=== PATIENT | female | born 1975 | race Caucasian/White ===

== ENCOUNTER 2018-11-11 10:59 | Day surgery (SDC) | payer OTHER ==
[~2018-11-11 10:59] MED LIST: Buffered Lidocaine 1% SYRIN* 1 ML/SYRINGE INTRADERM ONE
[2018-11-11] MEDS ORDERED: Midazolam* 1 MG/ML 2 ML VIAL (2 MG) ONE (13:37)
[2018-11-11 14:22] VITALS: BP 119/73
[2018-11-11] MEDS ORDERED: Lidocaine 1%* 5 ML VIAL ONE (15:12)
[2018-11-11] MEDS ORDERED: Lidocaine 2% EPI 1:200000 MPF*10-20 ML VIAL ONE (15:12)
[2018-11-11] MEDS ORDERED: acetaZOLAMIDE TAB* 250 MG ONE (15:12)
[2018-11-11] MEDS ORDERED: Ketorolac 0.5% OPHTH (NF) 0.5 % 5 ML BTL ONE (15:12)
[2018-11-11] MEDS ORDERED: Povidone Iodine 5% OPTH* 30 ML BTL ONE (15:12)
[2018-11-11] MEDS ORDERED: Neomycin/Polymy/Dex OPTH.SUSP* MAXITROL 0.1% 5 ML ONE (15:12)
[2018-11-11] MEDS ORDERED: Cyclopentolate 1% OPTH.SOL* 2 ML BTL ONE (15:12)
[2018-11-11] MEDS ORDERED: Proparacaine 0.5% OPHTH.SOL* 15 ML BTL ONE (15:15)
--- NOTE | 2018-11-11 19:49 | OP ---
DATE OF OPERATION: 11/11/18 [facility] DATE OF : 73 SURGEON: Sergey Mckee M.D. PREOPERATIVE DIAGNOSIS: Cataract right eye. POSTOPERATIVE DIAGNOSIS: Cataract right eye. OPERATIVE PROCEDURE: Extracapsular cataract extraction with intraocular lens implant right eye. DESCRIPTION OF PROCEDURE: The patient was brought to the operating room after being given 1/2% Alcaine with epinephrine drops in the preoperative area. The eye was prepped and draped in the usual sterile fashion. Sterile drape and eyelid speculum were placed. Again, topical 1/2% Alcaine with epinephrine was given. A paracentesis incision was made at the 9 o'clock position with the No.75 blade. Clear cornea incision 2.2 x 2.2-mm was created at the 12 o'clock position starting at the anterior limbus using the 2.2-mm keratome. The anterior chamber was irrigated with 0.4 mL of 1% non-preservative intracameral lidocaine and filled with DisCoVisc. A capsulorrhexis was completed using the cystotome and the Utrata forceps. Hydrodissection was performed with balanced salt solution. The lens nucleus was removed with the Phacoemulsification handpiece without incident. Cortex was removed with the irrigation-aspiration handpiece. The capsular bag was re-inflated using DisCoVisc and an [id number] 23.5 implant was inserted with the shooter and oriented to 92 degree meridian. Horizontal reference candelario made with the patient seated in the preoperative area and measurements were all confirmed with ORA. The irrigation-aspiration handpiece was used to remove all residual DisCoVisc. The eye was refilled with balanced salt solution and the wound checked and found to be watertight. Topical Maxitrol drops were given. [id number]/[facility] #: [id number] MTDD
== END 2018-11-11 14:22 | disposition home or self-care (01) ==
LOC: OREAST 10:59
PROVIDERS: ATTEND Specialist
DX: H25.041 Posterior subcapsular polar age-related cataract, right eye (principal); H52.221 Regular astigmatism, right eye; J45.909 Unspecified asthma, uncomplicated; K21.9 Gastro-esophageal reflux disease without esophagitis
CPT/HCPCS: 81025; A9270-GY; J2250; V2787

== ENCOUNTER 2023-11-11 05:56 | Observation (INO) ==
[~2023-11-11 05:56] MED LIST changes: -Buffered Lidocaine 1% SYRIN* 1 ML/SYRINGE INTRADERM ONE; +Naloxone 0.4 mg VIAL 0.4 mg/ml 1 ml VIAL IV PRN; +fentaNYL 100 mcg/2 ml 50 MCG/ML VIAL IV PRN
[2023-11-11] MEDS ORDERED: ceFAZolin 2 GM in NS PREMIX 2 GM/100 ML BAG IVPB ONE (06:27)
[2023-11-11 06:34] LABS: Rapid COVID-19 Molecular Undetected (Undetected)
[2023-11-11] MEDS: Lactated Ringers 1000 ml BAG 1,000 ML IV SCH (06:40)
[2023-11-11] MEDS ORDERED: Ondansetron 4 mg VIAL 2 MG/ML 2 ml VIAL ONE ×2 (08:07→13:41)
[2023-11-11] MEDS ORDERED: Dexamethasone IV 4 MG/ML VIAL 1 ml VIAL ONE (08:07)
[2023-11-11] MEDS ORDERED: Propofol 10 MG/ML 20 ML BTL ONE (08:07)
[2023-11-11] MEDS ORDERED: Rocuronium 50 mg VIAL 10 mg/ml 5 ml VIAL (50 mg) ONE ×2 (08:07→09:12)
[2023-11-11] MEDS ORDERED: Lidocaine 2% PF 5 ML VIAL ONE (08:07)
[2023-11-11] MEDS ORDERED: Midazolam 2 mg/2 ml VIAL 1 mg/ml 2 ml VIAL (2 mg) ONE (08:08)
[2023-11-11] MEDS ORDERED: fentaNYL 100 mcg/2 ml 50 MCG/ML VIAL ONE ×2 (08:08→11:03)
[2023-11-11] MEDS ORDERED: Lidocaine 1% w EPI 1:200,000 SDV 30 ML VIAL ONE (10:03)
[2023-11-11] MEDS ORDERED: Bupivacaine 0.5% SDV PF 30ML VIAL ONE (10:03)
[2023-11-11] MEDS ORDERED: HYDROmorphone 0.5 MG/0.5 ML SYRINGE ONE (10:51)
[2023-11-11] MEDS ORDERED: Labetalol IV 5 MG/ML 20 ml VIAL ONE (11:35)
[2023-11-11] MEDS ORDERED: Sevoflurane BOTTLE ONE (11:43)
[2023-11-11] MEDS ORDERED: Levalbuterol 1.25MG/0.5ML NEB.SOL ONE (13:12)
[2023-11-11] MEDS: Levalbuterol 1.25MG/0.5ML NEB.SOL INH PRN (13:14)
[2023-11-11] MEDS: Ondansetron 4 mg VIAL 2 MG/ML 2 ml VIAL IV PRN (13:44)
[2023-11-11] MEDS ORDERED: Metoclopramide 5 MG/ML VIAL (10 mg) IV PRN (15:17)
[2023-11-11] MEDS ORDERED: Prochlorperazine 5 mg/ml 2 ml VIAL (10 mg) ONE (15:21)
[2023-11-11] MEDS: Prochlorperazine 5 mg/ml 2 ml VIAL (10 mg) IV PRN (15:37)
[2023-11-11] MEDS ORDERED: Ondansetron 4 mg VIAL 2 MG/ML 2 ml VIAL IV PRN (16:17)
[2023-11-11] MEDS ORDERED: HYDROmorphone 0.5 MG/0.5 ML SYRINGE IV SLOW PU PRN (16:25)
[2023-11-11] MEDS ORDERED: HYDROcodone/ACET. 7.5/325 LIQ 15 ML UDC PO PRN (16:26)
[2023-11-11] MEDS ORDERED: Albuterol HFA INHALER 8 gm MDI INH PRN (16:32)
[2023-11-11] MEDS: Buffered Lidocaine 1% SYRIN 1 ml INTRADERM ONE (17:49)
[2023-11-11] MEDS: Acetaminophen IV 1 GM/100ML 1,000 MG/100 ML BAG IV SCH (18:18)
[2023-11-11] MEDS: Mometasone 220 MCG MDI INH SCH (20:19)
[2023-11-12 11:01] VITALS: BP 121/83
== END 2023-11-12 12:20 | disposition home or self-care (01) ==
LOC: OR 05:56 → SSU 05:56
PROVIDERS: ADMIT Surgery; ATTEND Surgery